=== PATIENT | female | born 1965 | race Caucasian/White ===

== ENCOUNTER 2023-04-24 09:54 | Emergency (ER) | payer OTHER, SELFPAY ==
--- NOTE | ~2023-04-24 | XR_ITS ---
EXAMINATION: XR CHEST CLINICAL INFORMATION: Shortness of breath on exertion. COMPARISON: None available. TECHNIQUE: 2 views of the chest were obtained. FINDINGS: The lungs are well expanded. No focal consolidation. No pleural effusion. Cardiac silhouette appears prominent. XR/XR chest 2V IMPRESSION: No acute abnormality.
--- NOTE | ~2023-04-24 | CT_ITS ---
EXAMINATION: CT HEAD WITH/WITHOUT CONTRAST CLINICAL INFORMATION: Severe headache. History of vasculitis. COMPARISON: None available. TECHNIQUE: Contiguous axial imaging was performed from the skull base to vertex before and after the administration of 67 mL of Omnipaque [address] examination was performed using dose optimization techniques as appropriate, variously including the following: *Automated exposure control *Adjustment of mA and/or kV according to patient size (this includes techniques or standardized protocols for targeted exams where dose is matched to indication/reason for exam; i.e. extremities or head) *Use of iterative reconstruction technique DLP: 1148 mGy-cm FINDINGS: There is no evidence of acute intracranial hemorrhage or territorial infarction. No abnormal mass effect or midline shift is seen. [place] to white matter differentiation is well preserved. No extra-axial fluid collections are identified. No abnormal parenchymal or leptomeningeal enhancement. No hydrocephalus. No significant volume loss. There is no abnormal attenuation within the brain parenchyma. The osseous structures and soft tissues are normal. The mastoid air cells and visualized portions of the paranasal sinuses are well aerated. CT/CT head/brain wo/w IV con IMPRESSION: No acute intracranial pathology. No abnormal enhancement.
[2023-04-24 10:12] VITALS: BP 109/54; PULSE 66; RESP 20; TEMP 36.7; O2SAT 96; BMI 34.7
[2023-04-24 11:06] VITALS: BP 146/45; PULSE 63; RESP 20; O2SAT 98
--- NOTE | 2023-04-24 11:52 | ECG_ITS ---
Test Reason : CP Blood Pressure : / mmHG Vent. Rate : 075 BPM Atrial Rate : 075 BPM P-R Int : 132 ms QRS Dur : 068 ms QT Int : 376 ms P-R-T Axes : 066 035 024 degrees QTc Int : 419 ms Normal sinus rhythm Possible Left atrial enlargement Septal infarct , age undetermined Abnormal ECG No previous ECGs available Referred By: Tian Celestin Electronically Signed By:DEBBI TOBIAS MD
[2023-04-24 12:58] LABS: Basophils Absolute Auto 0.1 X10*3/uL (0.0-0.2); Basophils Percent Auto 0.6 % (0-2); Eosinophils Absolute Auto 0.1 X10*3/uL (0.0-0.4); Eosinophils Percent Auto 1.1 % (0-4); Hematocrit 43.1 % (37.0-47.0); Imm Gran Abs Auto 0.04 X10*3/uL (0.00-0.03); Imm Gran Pct Auto 0.3 % (0.0-0.4); Lymphocytes Absolute Auto 2.9 X10*3/uL (1.2-4.9); MANUAL DIFF FLAG NO; Mean Corpuscular HGB Conc 32.5 g/dl (31.0-35.0); Mean Corpuscular Hemoglobin 30.8 pg (27.0-33.0); Mean Corpuscular Volume 94.9 fL (80.0-98.0); Mean Platelet Volume 10.1 fL (9.4-12.3); Monocytes Absolute Auto 0.8 X10*3/uL (0.1-1.2); Monocytes Percent Auto 6.6 % (2-11); Neutrophils Absolute Auto 8.2 x10*3/uL (2.0-8.3); Neutrophils Percent Auto 67.4 % (45-73); Platelet Count 295 X10*3/uL (160-400); Red Blood Count 4.54 X10*6/uL (4.20-5.50); Red Cell Distribution Width 13.2 % (11.0-16.0); White Blood Count 12.2 X10*3/uL (4.8-10.8)
[2023-04-24] MEDS: 0.9 % Sodium Chloride 1,000 ML 999 ML IV (13:26)
--- NOTE | 2023-04-24 13:29 | ED_ITS ---
HPI - General Adult General Chief complaint: Headache Stated complaint: headache sob Time Seen by Provider: 04/24/23 11:39 Source: patient Mode of arrival: ambulatory Limitations: no limitations History of Present Illness HPI narrative: 57-year-old female presents with multiple complaints. Patient's symptoms start ed 3-4 days ago associated with cough and some pleuritic chest pain. The symptoms are moderate in nature. There is no clear relieving or exacerbating features. The pain is described as sharp. Pain is not radiate. It is not associated with nausea, vomiting. There is no association with exertion. Today, patient also developed a frontal headache. The headache is 9/10. The pain does not radiate. It is associated with photo and phonophobia. Associated with nausea but no vomiting. She has no fevers, no neck pain or stiffness. Related Data Previous Rx's Medication Instructions Recorded metoclopramide HCl 10 mg tablet 10 mg PO Q6H PRN headache nausea 04/24/23 (Reglan) #10 tabs naproxen 500 mg tablet 500 mg PO BID PRN pain #14 tabs 04/24/23 promethazine-DM 6.25 mg-15 mg/5 mL 5 ml PO Q4-6H PRN cough #118 mL 04/24/23 oral syrup Allergies Allergy/AdvReac Type Severity Reaction Status Date / Time No Known Allergies Allergy Verified 04/24/23 10:12 Review of Systems Review of Systems: CONSTITUTIONAL: Denies weight loss, fever and chills. HEENT: Denies changes in vision and hearing. RESPIRATORY: Positive SOB and cough. CV: Denies palpitations positive CP. GI: Denies abdominal pain, positive nausea, negative vomiting and diarrhea. : Denies dysuria and urinary frequency. MSK: Denies myalgia and joint pain. SKIN: Denies rash and pruritus. NEUROLOGICAL: Positive headache and negative syncope. PSYCHIATRIC: Denies recent changes in mood. Denies anxiety and depression. All other ROS are negative unless in HPI PMFSH Social History Social History Advance Directives: No Advance Directives Information Provided: Yes Physical Exam ED Vital Signs: Vital Signs - 24 hr 04/24/23 10:12 04/24/23 11:06 04/24/23 14:35 Temperature 98.0 F 98.4 F Pulse Rate 66 63 71 Respiratory Rate 20 20 18 Blood Pressure 109/54 L 146/45 H 124/42 L Pulse Oximetry 96 98 96 Oxygen Delivery Method Room Air Room Air Room Air BMI result Body Mass Index 34.7 GEN: Well developed, no acute distress, alert, oriented HEENT: Normocephalic, atraumatic, normal external ears, nose appears normal, no oropharyngeal edema or exudates Eyes: Normal to appearance Neck: Supple, no lymphadenopathy Respiratory: Talks in complete sentences, no respiratory distress, clear to auscultation bilaterally Cardiovascular: Regular rate and rhythm, no murmurs rubs or gallops Abdomen: Soft, nontender, nondistended, no guarding, no rebound Back: No CVA tenderness Extremities: No clubbing cyanosis or edema Neurologic: No focal neurologic deficits, cranial nerves 2-12 intact, strength is 5/5 bilaterally Skin: No rash Course Course Course Narrative: 57-year-old female presents with headache, cough and shortness of breath. Symptoms could be consistent with a viral infection. Doubt bacterial pneumonia. Lungs are clear to auscultation bilaterally. Patient does have reported history of vasculitis. Will order CT scan of the head with and without contrast. Will order routine labs. Will order medications for symptomatic relief. Reevaluation(s) Reevaluation #1: Patient is feeling much better. Discussed results. There is no clear indication of vasculitis. She has follow-up with her neurologist arranged. Will discharge home at this time. There is no indication for treatment of her respiratory symptoms with antibiotics as there is no evidence pneumonia or bacterial bronchitis. Will treat her symptomatically. Time: 15:58 Medications Administered Discontinued Medications Generic Name Dose Route Start Last Admin Trade Name Freq PRN Reason Stop Dose Admin Sodium Chloride 1,000 mls @ 999 mls/hr 04/24/23 12:00 04/24/23 13:26 Ns IV 04/24/23 13:00 999 mls/hr .Q1H1M LUIS EDUARDO Administration Iohexol 100 ml 04/24/23 15:03 04/24/23 15:04 Iohexol 350 Mg/Ml 100 Ml Infus..Btl IV 04/24/23 15:04 67 ml ONCE ONE Administration Ketorolac Tromethamine 15 mg 04/24/23 13:30 04/24/23 14:17 Ketorolac Tromethamine 15 Mg/Ml Vial IVPUSH 04/24/23 13:31 15 mg ONCE ONE Administration Metoclopramide HCl 10 mg 04/24/23 13:30 04/24/23 14:17 Metoclopramide Hcl 10 Mg/2 Ml Vial IVPUSH 04/24/23 13:31 10 mg ONCE ONE Administration Medical Decision Making Medical Decision Making [facility] Narrative: Patient presents with cough and shortness of breath. Differential diagnosis includes viral illness, bronchitis, pneumonia, asthma. Will order chest x-ray and COVID tests re-evaluate patient. Patient is also complaining of headache. The headache is frontal. Is worse with light and sound. Differential diagnosis includes sinusitis, and viral migraine, atypical headache. Will provide patient with symptomatic relief. She does have a reported history of vasculitis. Will order head with and without contrast. Differential Diagnosis Differential Diagnoses: The differential diagnosis associated with the presentation includes (See above) Admission/Observation Consideration of admission/observation: Escalation of care including admissio n/observation considered Lab Data [facility] Lab Attestation statement: I reviewed the patient's lab results. 04/24/23 12:46 Labs: Lab Results 04/24/23 04/24/23 04/24/23 Range/Units 12:46 12:46 14:06 WBC 12.2 H (4.8-10.8) X10*3/uL RBC 4.54 (4.20-5.50) X10*6/uL Hgb 14.0 (12.0-16.0) g/dl Hct 43.1 (37.0-47.0) % MCV 94.9 (80.0-98.0) fL MCH 30.8 (27.0-33.0) pg MCHC 32.5 (31.0-35.0) g/dl RDW 13.2 (11.0-16.0) % Plt Count 295 (160-400) X10*3/uL MPV 10.1 (9.4-12.3) fL Immature Gran % (Auto) 0.3 (0.0-0.4) % Neut % (Auto) 67.4 (45-73) % Lymph % (Auto) 24.0 (20-40) % [place] % (Auto) 6.6 (2-11) % Eos % (Auto) 1.1 (0-4) % Baso % (Auto) 0.6 (0-2) % Lymph # (Auto) 2.9 (1.2-4.9) X10*3/uL [place] # (Auto) 0.8 (0.1-1.2) X10*3/uL Eos # (Auto) 0.1 (0.0-0.4) X10*3/uL Baso # (Auto) 0.1 (0.0-0.2) X10*3/uL Abs Immat Gran (auto) 0.04 H (0.00-0.03) X10*3/uL Absolute Neuts (auto) 8.2 (2.0-8.3) x10*3/uL Absolute Nucleated RBC 0.000 (0.0-0.012) X10*3/uL Nucleated RBC % (auto) 0.0 (0.0-0.2) /100WBC ESR 45 H (0-20) MM/HR Sodium 142 (135-145) mmol/L Potassium 4.6 (3.3-5.1) mmol/L Chloride 110 H (96-108) mmol/L Carbon Dioxide 22 (22-29) mmol/L Anion Gap 15 (12-20) BUN 9 (9-16) mg/dL Creatinine 0.64 (0.5-1.4) mg/dL Estim Creat Clear Calc 98.8 Estimated GFR > 60 Random Glucose 92 (60-115) mg/dL Calcium 8.9 (8.4-10.2) mg/dL C-Reactive Protein 6.26 H (< or = 0.50) mg/dL COVID-19 (EKTA) (Negative) COVID-19 Clin Com 04/24/23 Range/Units 14:32 WBC (4.8-10.8) X10*3/uL RBC (4.20-5.50) X10*6/uL Hgb (12.0-16.0) g/dl Hct (37.0-47.0) % MCV (80.0-98.0) fL MCH (27.0-33.0) pg MCHC (31.0-35.0) g/dl RDW (11.0-16.0) % Plt Count (160-400) X10*3/uL MPV (9.4-12.3) fL Immature Gran % (Auto) (0.0-0.4) % Neut % (Auto) (45-73) % Lymph % (Auto) (20-40) % [place] % (Auto) (2-11) % Eos % (Auto) (0-4) % Baso % (Auto) (0-2) % Lymph # (Auto) (1.2-4.9) X10*3/uL [place] # (Auto) (0.1-1.2) X10*3/uL Eos # (Auto) (0.0-0.4) X10*3/uL Baso # (Auto) (0.0-0.2) X10*3/uL Abs Immat Gran (auto) (0.00-0.03) X10*3/uL Absolute Neuts (auto) (2.0-8.3) x10*3/uL Absolute Nucleated RBC (0.0-0.012) X10*3/uL Nucleated RBC % (auto) (0.0-0.2) /100WBC ESR (0-20) MM/HR Sodium (135-145) mmol/L Potassium (3.3-5.1) mmol/L Chloride (96-108) mmol/L Carbon Dioxide (22-29) mmol/L Anion Gap (12-20) BUN (9-16) mg/dL Creatinine (0.5-1.4) mg/dL Estim Creat Clear Calc Estimated GFR Random Glucose (60-115) mg/dL Calcium (8.4-10.2) mg/dL C-Reactive Protein (< or = 0.50) mg/dL COVID-19 (EKTA) Negative (Negative) COVID-19 Clin Com See Note Independent Interpretation I performed an independent interpretation of an: EKG (Normal sinus rhythm heart rate 75, no acute ST elevations depressions, normal intervals), Plain X-Ray and CT Scan Tests considered The following testing was considered but not selected: MRI Prescription Management I considered prescription management with: Pain Medication and Antibiotic Chronic Conditions Patient?s care impacted by: Other (Vasculitis) Discharge Plan Discharge Clinical Impression: Headache, Cough, Acute dyspnea Patient Disposition: Home, Self-Care Instructions: Acute Headache (ED), Dyspnea (ED), Acute Cough (ED) Prescriptions: New metoclopramide HCl [Reglan] 10 mg tablet 10 mg PO Q6H PRN (Reason: headache nausea) Qty: 10 0RF naproxen 500 mg tablet 500 mg PO BID PRN (Reason: pain) Qty: 14 0RF promethazine-DM 6.25-15 mg/5 mL syrup 5 ml PO Q4-6H PRN (Reason: cough) Qty: 118 0RF Referrals: Physician,Unknown J [Primary Care Provider] - (PMD - 3-5 days)
[2023-04-24 13:41] LABS: Erythrocyte Sedimentation Rate 45 MM/HR (0-20)
[2023-04-24] MEDS: Metoclopramide HCl 10 MG/2 ML VIAL IVPUSH (14:17)
[2023-04-24] MEDS: Ketorolac Tromethamine 15 MG/ML VIAL IVPUSH (14:17)
[2023-04-24 14:35] VITALS: BP 124/42; PULSE 71; RESP 18; TEMP 36.9; O2SAT 96
[2023-04-24 14:41] LABS: Anion Gap 15 (12-20); Blood Urea Nitrogen 9 mg/dL (9-16); C Reactive Protein 6.26 mg/dL (< or = 0.50); Calcium 8.9 mg/dL (8.4-10.2); Carbon Dioxide 22 mmol/L (22-29); Chloride 110 mmol/L (96-108); Creatinine Clr Calc Pharmacy 98.8; Estimated Glomerular Filt Rate > 60; Glucose Random 92 mg/dL (60-115); Potassium 4.6 mmol/L (3.3-5.1); Sodium 142 mmol/L (135-145)
[2023-04-24 14:54] LABS: COVID-19 Test Negative (Negative); IDNOW Serial# 08D9AD1C
[2023-04-24] MEDS: iohexoL 350 MG/ML 100 ML INFUS..BTL IV (15:04)
== END 2023-04-24 16:49 | disposition home or self-care (01) ==
PROVIDERS: Emergency Provider Emergency Medicine
DX: R51.9 Headache, unspecified (principal); R05.9 Cough, unspecified; R06.02 Shortness of breath; Z20.822 Contact with and (suspected) exposure to COVID-19; Z20.828 Contact with and (suspected) exposure to other viral communicable diseases; Z79.899 Other long term (current) drug therapy
CPT/HCPCS: 36415; 70470; 71046; 80048; 85025; 85652; 86140; 87635; 93005; 96374; 96375; 99284; J1885; J2765; Q9967